=== PATIENT | female | born 1965 | race Two or more races ===

== ENCOUNTER 2017-09-10 11:31 | Emergency (ER) | payer MEDICAID ==
[~2017-09-10] VITALS: Ht 165.1 cm; Wt 62.6 kg
[2017-09-10 13:01] VITALS: BP 147/82
== END 2017-09-10 13:15 | disposition home or self-care (01) ==
LOC: ER 11:31
DX: H10.9 Unspecified conjunctivitis (principal)

== ENCOUNTER 2017-09-13 11:47 | Emergency (ER) | payer MEDICAID ==
[~2017-09-13] VITALS: Ht 165.1 cm; Wt 65.0 kg
[2017-09-13 14:30] VITALS: BP 125/74
== END 2017-09-13 15:12 | disposition home or self-care (01) ==
LOC: ER 11:47
DX: H10.9 Unspecified conjunctivitis (principal)

== ENCOUNTER 2018-08-08 10:34 | Emergency (ER) | payer MEDICAID ==
[~2018-08-08] VITALS: Ht 157.5 cm; Wt 63.0 kg
[2018-08-08 11:11] VITALS: BP 138/78
== END 2018-08-08 12:12 | disposition home or self-care (01) ==
LOC: ER 10:34
DX: D17.23 Benign lipomatous neoplasm of skin and subcutaneous tissue of right leg (principal)

== ENCOUNTER 2018-10-26 14:37 | Emergency (ER) | payer MEDICAID ==
[~2018-10-26] VITALS: Ht 157.5 cm; Wt 63.5 kg
[2018-10-26 15:05] VITALS: BP 142/91
== END 2018-10-26 19:26 | disposition home or self-care (01) ==
LOC: ER 14:41
DX: H10.9 Unspecified conjunctivitis (principal); J32.9 Chronic sinusitis, unspecified

== ENCOUNTER 2022-11-07 06:14 | Day surgery (SDC) | payer MEDICAID ==
[~2022-11-07] VITALS: Ht 157.5 cm; Wt 68.0 kg
[2022-11-07] MEDS ORDERED: BUPIVACAINE 0.25% INJ 50ML VIAL ONE (06:50)
[2022-11-07] MEDS ORDERED: LIDOCAINE 1%HCL (LOCAL ANESTH) 10 ML MDV ONE (06:50)
[2022-11-07] MEDS ORDERED: ceFAZolin 1GM/50ML 100 ML IV ONE (07:12)
[2022-11-07] MEDS ORDERED: MIDAZOLAM HCL 2MG/2ML 2ml VIAL (1mg/ml) ONE (07:23)
[2022-11-07] MEDS ORDERED: fentaNYL CITRATE 100 MCG/2 ML VL ONE (07:23)
[2022-11-07 09:00] VITALS: BP 115/62
== END 2022-11-07 09:45 | disposition home or self-care (01) ==
LOC: SUR 06:14
PROVIDERS: ATTEND Podiatrist
DX: D17.24 Benign lipomatous neoplasm of skin and subcutaneous tissue of left leg (principal); M79.671 Pain in right foot; Z20.822 Contact with and (suspected) exposure to COVID-19
CPT/HCPCS: 28039; 73620; 88305; 88342; J0690; J2001; J2250; J3010; J3490; U0003